=== PATIENT | female | born 1990 | race Caucasian/White ===

== ENCOUNTER 2021-02-04 09:23 | Inpatient (IN) | payer BC ==
[~2021-02-04] VITALS: Ht 167.6 cm; Wt 95.4 kg
[2021-02-04] MEDS ORDERED: ONDANSETRON 2MG/ML, 2ML IVPush PRN (10:30)
[2021-02-04] MEDS ORDERED: OXYTOCIN 30U/ 0.9% NaCL 500ML 500 ML IV ONE (10:30)
[2021-02-04] MEDS ORDERED: MISOPROSTOL 25 MCG TABLET VG PRN (10:30)
[2021-02-04] MEDS ORDERED: FENTANYL PF 100 MCG/2ML IVPush PRN (10:30)
[2021-02-04] MEDS ORDERED: TERBUTALINE 1 MG/ML, 1ML IVPush PRN (10:30)
[2021-02-04] MEDS ORDERED: TERBUTALINE 1 MG/ML, 1ML SQ PRN (10:30)
[2021-02-04] MEDS ORDERED: CALCIUM CARBONATE 500 MG TAB.CHEW PO PRN (10:30)
[2021-02-04] MEDS ORDERED: OXYTOCIN 30U/ 0.9% NaCL 500ML 500 ML IV PRN (10:30)
[2021-02-04] MEDS ORDERED: D5%-LACTATED RINGERS 1,000 ML IV SCH (10:30)
[2021-02-04 10:42] LABS: BASOPHILS % (AUTO) 0 % (0-1); EOSINOPHILS % (AUTO) 1 % (1-7); LYMPHOCYTES % (AUTO) 15 % (22-44); MEAN CORPUSCULAR HEMOGLOBIN 28.5 pg (27.0-34.8); MEAN CORPUSCULAR HGB CONC 33.4 g/dL (32.4-35.8); MEAN PLATELET VOLUME 9.2 fL (7.4-10.4); MONOCYTES % (AUTO) 6 % (2-9); NEUTROPHILS % (AUTO) 78 % (42-75); PLATELET COUNT 226 x10^3/uL (130-400); RED BLOOD COUNT 4.35 x10^6/uL (3.82-5.3); RED CELL DISTRIBUTION WIDTH 14.6 % (9.6-15.2)
[2021-02-04 10:43] LABS: MICROSCOPIC INDICATED
[2021-02-04 10:54] LABS: ALANINE AMINOTRANSFERASE 16 U/L (12-78); ALBUMIN 2.8 g/dL (3.4-5.0); ANION GAP 9 mmol/L (5-15); CALCIUM 9.2 mg/dL (8.5-10.1); CHLORIDE 108 mmol/L (98-107); CREATININE 0.46 mg/dL (0.55-1.02)
[2021-02-04 10:55] LABS: BILIRUBIN, DIRECT < 0.1 mg/dL (0.1-0.2)
[2021-02-04 10:56] LABS: ALKALINE PHOSPHATASE 175 U/L (45-117); BILIRUBIN,TOTAL 0.3 mg/dL (0.2-1.0); TOTAL PROTEIN 6.7 g/dL (6.4-8.2)
[2021-02-04 11:00] VITALS: BP 137/96
[2021-02-04] MEDS: LACTATED RINGERS 1,000 ML IV SCH (19:14)
[2021-02-04] MEDS ORDERED: FENTANYL/BUPIV./NS/PF 250 ML EPIDCONT ONE (19:44)
[2021-02-04] MEDS ORDERED: BUPIVACAINE 0.25% ONE (19:44)
[2021-02-05] MEDS ORDERED: LACTATED RINGERS 1,000 ML INTUTE PRN (02:30)
[2021-02-05] MEDS ORDERED: LACTATED RINGERS 1,000 ML INTUTE SCH (02:30)
[2021-02-05] MEDS: LACTATED RINGERS 1,000 ML IV SCH ×3 (02:31→14:18)
[2021-02-05] MEDS ORDERED: NEWBORN KIT ONE (05:36)
[2021-02-05] MEDS ORDERED: LACTATED RINGERS 1,000 ML IVBOLUS PRN (06:00)
[2021-02-05] MEDS ORDERED: EPHEDRINE 50 MG/ML, 1ML IVPush PRN (06:00)
[2021-02-05] MEDS ORDERED: NALOXONE 0.4 MG/ML, 1ML IVPush PRN (06:00)
[2021-02-05] MEDS ORDERED: DIPHENHYDRAMINE 50 MG/ML, 1ML IVPush PRN (06:00)
[2021-02-05] MEDS ORDERED: FENTANYL/BUPIV./NS/PF 250 ML EPIDCONT SCH (06:00)
[2021-02-05] MEDS ORDERED: ONDANSETRON 2MG/ML, 2ML IVPush PRN (06:00)
[2021-02-05] MEDS ORDERED: MISOPROSTOL 200 MCG TABLET PR PRN (06:30)
[2021-02-05] MEDS ORDERED: DOCUSATE 100 MG CAPSULE PO PRN (06:30)
[2021-02-05] MEDS ORDERED: SIMETHICONE 80 MG CHEW TAB PO PRN (06:30)
[2021-02-05] MEDS ORDERED: ACETAMINOPHEN 325 MG TABLET PO PRN (06:30)
[2021-02-05] MEDS ORDERED: OXYcodone IR 5MG TABLET PO PRN (06:30)
[2021-02-05] MEDS: OXYTOCIN 30U/ 0.9% NaCL 500ML 500 ML IV SCH ×2 (06:30→16:30)
[2021-02-05] MEDS ORDERED: ONDANSETRON 2MG/ML, 2ML IV PRN (06:30)
[2021-02-05] MEDS ORDERED: OXYcodone/APAP 5/325MG TABLET PO PRN (06:30)
[2021-02-05] MEDS: IBUPROFEN 600 MG TABLET PO PRN ×3 (08:15→20:35)
[2021-02-05] MEDS: PRENATAL VIT/IRON/FA 1 EACH TABLET PO SCH (08:30)
[2021-02-05 10:51] VITALS: BP 127/87
[2021-02-05 13:27] LABS: MEAN CORPUSCULAR HEMOGLOBIN 28.5 pg (27.0-34.8); MEAN CORPUSCULAR HGB CONC 32.9 g/dL (32.4-35.8); MEAN PLATELET VOLUME 8.9 fL (7.4-10.4); PLATELET COUNT 256 x10^3/uL (130-400); RED BLOOD COUNT 4.38 x10^6/uL (3.82-5.3); RED CELL DISTRIBUTION WIDTH 14.9 % (9.6-15.2)
[2021-02-05 13:55] LABS: <PLATELET ESTIMATE> ADEQUATE; <PLT MORPHOLOGY> NORMAL PLT MORPH; <RBC MORPHOLOGY> NORMAL; BAND#(MANUAL) 1.14 x10^3/uL; BANDS%(MANUAL) 5 % (0-7); LYMPH#(MANUAL) 1.37 x10^3/uL (1-3.4); LYMPHS% (MANUAL) 6 % (22-44); MONOS#(MANUAL) 0.91 x10^3/uL (0.3-2.7); MONOS% (MANUAL) 4 % (2-9); SEG#(MANUAL) 19.38 x10^3/uL (1.8-6.8); SEGS% (MANUAL) 85 % (42-75)
[2021-02-05 16:08] VITALS: BP 126/86
[2021-02-05] MEDS ORDERED: MEASLES,MUMPS&RUBELLA VACC/PF 0.5 ML SQ-VACC ONE ×2 (19:46→20:00)
[2021-02-05 21:00] VITALS: BP 124/77
[2021-02-06 01:00] VITALS: BP 127/85
[2021-02-06] MEDS: IBUPROFEN 600 MG TABLET PO PRN ×2 (05:12→12:38)
[2021-02-06 07:27] VITALS: BP 137/78
[2021-02-06] MEDS: PRENATAL VIT/IRON/FA 1 EACH TABLET PO SCH (09:00)
[2021-02-06] MEDS ORDERED: IBUP-1222 PO (11:43)
== END 2021-02-06 13:00 | disposition home or self-care (01) | DRG 807 ==
LOC: LDIP 09:23 → 2NW 02-05 10:39
PROVIDERS: ADMIT Obstetrics & Gynecology; ATTEND Obstetrics & Gynecology
PROC: 10E0XZZ Delivery of Products of Conception, External Approach (ICD-10-PCS; principal; 2021-02-05)
PROC: 0W8NXZZ Division of Female Perineum, External Approach (ICD-10-PCS; 2021-02-05)
PROC: 3E0R3BZ Introduction of Anesthetic Agent into Spinal Canal, Percutaneous Approach (ICD-10-PCS; 2021-02-05)
PROC: 00HU33Z Insertion of Infusion Device into Spinal Canal, Percutaneous Approach (ICD-10-PCS; 2021-02-05)
DX: O48.0 Post-term pregnancy (principal); Z37.0 Single live birth; Z3A.40 40 weeks gestation of pregnancy; O69.81X0 Labor and delivery complicated by cord around neck, without compression, not applicable or unspecified
CPT/HCPCS: 36415; 80053; 81001; 82248; 82570; 84156; 84550; 85025; 86592; 86850; 86900; 90707; G0378; J2405; J2590; J3010; J7120